=== PATIENT | female | born 1965 | race Caucasian/White ===

== ENCOUNTER 2022-05-27 16:00 | Emergency (ER) | payer BC ==
[2022-05-27 16:43] VITALS: BP 123/78; PULSE 88; RESP 16; TEMP 98.1; BMI 23.8
== END 2022-05-27 16:50 | disposition home or self-care (01) ==
LOC: FER 16:00
DX: B34.9 Viral infection, unspecified (principal)
CPT/HCPCS: 0241U-QW; 99283-25